=== PATIENT | male | born 1975 | race Caucasian/White ===

== ENCOUNTER 2021-07-29 06:10 | Inpatient (IN) | payer MEDICAID ==
[2021-07-29] VITALS (48 sets, daily range): BP systolic 84–177; BP diastolic 50–99
[~2021-07-29] VITALS: Ht 165.1 cm; Wt 92.5 kg
[2021-07-29] MEDS ORDERED: ONDANSETRON HCL 4MG/2ML INJ IV STA (06:29)
[2021-07-29] MEDS ORDERED: ROCURONIUM BROMIDE 10MG/ML VIAL 5ML IV ONE (06:45)
[2021-07-29] MEDS ORDERED: ETOMIDATE 2MG/ML 10ML VIAL IV ONE ×2 (06:45→08:41)
[2021-07-29] MEDS ORDERED: SUCCINYLCHOLINE CHLORIDE 200MG/10ML IV ONE (06:45)
[2021-07-29] MEDS ORDERED: PROPOFOL 10MG/ML 100ML 100 ML IV ONE (06:45)
[2021-07-29 06:56] LABS: CHLORIDE 97 mEq/L (98-107)
[2021-07-29 06:57] LABS: BASOPHILS % 0.9 % (0.0-2.0); EOSINOPHILS % 0.7 % (0.0-5.0); HEMATOCRIT. 32.3 % (42.0-52.0); HEMOGLOBIN. 10.9 g/dL (14.0-18.0); MEAN CORPUSCULAR HEMOGLOBIN 28.1 pg (28.0-32.0); MEAN CORPUSCULAR VOLUME 83.5 fL (80.0-94.0); MEAN PLATELET VOLUME 10.2 fl (7.4-10.4); MONOCYTES % 4.2 % (2.0-8.0); NEUTROPHILS % 80.2 % (40.0-76.0); PLATELET 165 x1000/uL (130-400); RED BLOOD CELL COUNT 3.87 mill/uL (4.7-6.1); RED CELL DISTRIBUTION WIDTH 17.5 % (11.6-14.6)
[2021-07-29] MEDS ORDERED: FENTANYL CITRATE/PF 1,000 MCG in SODIUM CHLORIDE 0.9% 80 ML IV PRN (07:00)
[2021-07-29] MEDS ORDERED: PIPERACILLIN/TAZOBACTAM 3.375GM/50ML PREMIX IV ONE (07:00)
[2021-07-29] MEDS ORDERED: VANCOMYCIN 1 G PREMIX 200 ML IV SCH (07:00)
[2021-07-29 07:05] LABS: PROTHROMBIN TIME 10.5 sec (9.6-11.0)
[2021-07-29] MEDS ORDERED: DIPHENHYDRAMINE 50MG/ML VIAL IV ONE (07:15)
[2021-07-29] MEDS ORDERED: METHYLPREDNISOLONE SOD SUCC 125 MG/2 ML VIAL IV ONE (07:15)
[2021-07-29] MEDS ORDERED: EPINEPHRINE 1:1000 1 MG/ML AMP IM ONE (07:15)
[2021-07-29] MEDS ORDERED: FAMOTIDINE 20MG/2ML VIAL IV ONE (07:15)
[2021-07-29] MEDS ORDERED: PIPERACILLIN/TAZ 3.375G PREMIX 50 ML IV NR (07:30)
[2021-07-29] MEDS ORDERED: SODIUM CHLORIDE 0.9% 1,000 ML IV ONE (07:30)
[2021-07-29] MEDS ORDERED: FENTANYL CITRATE 2,500 MCG in SODIUM CHLORIDE 0.9% 200 ML IV PRN (07:45)
[2021-07-29] MEDS ORDERED: METHYLPREDNISOLONE SOD SUCC 125 MG/2 ML VIAL IV SCH (07:50)
[2021-07-29] MEDS ORDERED: FENTANYL CITRATE/PF 50MCG/ML 2ML VIAL IV ONE (08:00)
[2021-07-29] MEDS ORDERED: LORAZEPAM 2MG/ML CPJ IV ONE ×2 (08:00)
[2021-07-29] MEDS ORDERED: MIDAZOLAM HCL 2 MG/2 ML VIAL IV ONE (08:00)
[2021-07-29 08:04] LABS: BG BASE EXCESS -5.8 mmol/L (-2.0-2.0); BG CARBOXYHEMOGLOBIN 0.3 % (0.5-1.5); BG DEOXYHEMOGLOBIN 2.7 % (0.0-5.0); BG FRACTION INSPIRED OXYGEN 60; BG HCO3 ACT 20.2 mmol/L (22.0-26.0); BG METHEMOGLOBIN 0.3 % (0.0-1.5); BG OXYGEN SATURATION 97.3 % (92.0-98.5); BG OXYHEMOGLOBIN 96.7 % (94.0-97.0); BG PCO2 41.9 mmHg (35.0-45.0); BG PH 7.302 (7.350-7.450); BG PO2 119.7 mmHg (75.0-100.0); BG SAMPLE SITE RIGHT RADIAL; BG TOTAL HEMOGLOBIN 11.2 g/dL (12.0-18.0); BG VENT MODE VENT - AC
[2021-07-29] MEDS ORDERED: SODIUM CHLORIDE 0.9% 10ML VIAL ONE (08:41)
[2021-07-29] MEDS ORDERED: VECURONIUM BROMIDE 10 MG/VIAL IV ONE (08:41)
[2021-07-29 09:27] LABS: CLARITY URINE CLEAR (CLEAR); COLOR URINE YELLOW (YELLOW); KETONES URINE NEGATIVE (NEGATIVE); LEUKOCYTE ESTERASE URINE NEGATIVE (NEGATIVE); NITRITE URINE NEGATIVE (NEGATIVE); OCCULT BLOOD URINE 2+ (NEGATIVE); PH URINE 5.5 (4.5-8.0); PROTEIN URINE 3+ (NEGATIVE); SPECIFIC GRAVITY URINE 1.015 (1.005-1.030); UROBILINOGEN URINE 0.2 E.U./dL (0.2-1.0)
[2021-07-29] MEDS ORDERED: ONDANSETRON HCL 4MG/2ML INJ IV PRN (09:30)
[2021-07-29] MEDS: DIPHENHYDRAMINE 50MG/ML VIAL IV SCH ×2 (09:59→16:42)
[2021-07-29] MEDS: SODIUM CHLORIDE 0.9% 1,000 ML IV SCH (10:02)
[2021-07-29] MEDS: PANTOPRAZOLE SODIUM 40 MG/VIAL IV SCH (10:13)
[2021-07-29] MEDS ORDERED: MIDAZOLAM 100MG/100ML PMX 100 ML IV PRN (11:30)
[2021-07-29] MEDS ORDERED: MIDAZOLAM HCL 100 MG in SODIUM CHLORIDE 0.9% 100 ML IV PRN (11:30)
[2021-07-29] MEDS: FENTANYL CITRATE/PF 2,500 MCG in SODIUM CHLORIDE 0.9% 200 ML IV PRN ×2 (11:46→20:12)
[2021-07-29] MEDS ORDERED: PROPOFOL 10MG/ML 100ML 100 ML IV PRN (12:00)
[2021-07-29] MEDS: PROPOFOL 10MG/ML 100ML 100 ML IV PRN ×2 (12:30→20:13)
[2021-07-29] MEDS: IPRATROPIUM/ALBUTEROL 0.5-3(2.5)MG/3ML NEB HHN SCH ×3 (12:55→21:04)
[2021-07-29] MEDS ORDERED: LIDOCAINE HCL 1% 20ML VIAL (Pyxis) INJ ONE (13:29)
[2021-07-29] MEDS: METHYLPREDNISOLONE SOD SUCC 40 MG/ML VIAL IV SCH ×2 (14:22→21:41)
[2021-07-29] MEDS: PIPERACILLIN/TAZOBACTAM 3.375 G in DEXTROSE 5% WATER 50 ML IV SCH ×2 (16:01→22:55)
[2021-07-29] MEDS ORDERED: BLOOD SUGAR DIAGNOSTIC STRIP TEST SCH (16:30)
[2021-07-29] MEDS ORDERED: INSULIN LISPRO 100 UNITS/ML SUBCUT SCH (17:00)
[2021-07-29] MEDS ORDERED: INSULIN GLARGINE UD 100 UNITS/ML SYR SUBCUT NR (18:30)
[2021-07-29] MEDS: ENOXAPARIN 30MG/0.3ML SYR SUBCUT SCH (19:01)
[2021-07-29] MEDS ORDERED: PIPERACILLIN/TAZOBACTAM 3.375 G in DEXTROSE 5% WATER 50 ML IV SCH (21:00)
[2021-07-29] MEDS: NOREPINEPHRINE 8 MG in DEXT 5% WATER 242 ML IV PRN (22:56)
[2021-07-30] VITALS (97 sets, daily range): BP systolic 79–175; BP diastolic 44–104
[2021-07-30] MEDS: PROPOFOL 10MG/ML 100ML 100 ML IV PRN ×6 (00:25→21:48)
[2021-07-30] MEDS: BLOOD SUGAR DIAGNOSTIC STRIP TEST SCH ×5 (00:30→23:25)
[2021-07-30] MEDS: SODIUM CHLORIDE 0.9% 1,000 ML IV SCH ×2 (00:32→12:12)
[2021-07-30] MEDS: INSULIN LISPRO 100 UNITS/ML SUBCUT SCH ×5 (00:33→23:25)
[2021-07-30] MEDS: IPRATROPIUM/ALBUTEROL 0.5-3(2.5)MG/3ML NEB HHN SCH ×6 (00:35→20:33)
[2021-07-30] MEDS: DIPHENHYDRAMINE 50MG/ML VIAL IV SCH ×3 (01:07→17:16)
[2021-07-30] MEDS: FENTANYL CITRATE/PF 2,500 MCG in SODIUM CHLORIDE 0.9% 200 ML IV PRN ×2 (04:17→20:52)
[2021-07-30] MEDS: ENOXAPARIN 30MG/0.3ML SYR SUBCUT SCH ×2 (05:29→17:17)
[2021-07-30] MEDS: METHYLPREDNISOLONE SOD SUCC 40 MG/ML VIAL IV SCH ×3 (05:29→21:00)
[2021-07-30] MEDS: PIPERACILLIN/TAZOBACTAM 3.375 G in DEXTROSE 5% WATER 50 ML IV SCH ×3 (05:29→21:02)
[2021-07-30 05:42] LABS: HEMATOCRIT. 32.9 % (42.0-52.0); HEMOGLOBIN. 10.9 g/dL (14.0-18.0); MEAN CORPUSCULAR HEMOGLOBIN 27.9 pg (28.0-32.0); MEAN CORPUSCULAR VOLUME 84.5 fL (80.0-94.0); MEAN PLATELET VOLUME 10.4 fl (7.4-10.4); PLATELET 156 x1000/uL (130-400); RED CELL DISTRIBUTION WIDTH 17.7 % (11.6-14.6)
[2021-07-30] MEDS ORDERED: FENTANYL CITRATE/PF 1,000 MCG in SODIUM CHLORIDE 0.9% 80 ML IV PRN (07:00)
[2021-07-30] MEDS ORDERED: SODIUM POLYSTYRENE SULFONATE 15 G/60 ML BOT PO NR (07:39)
[2021-07-30 08:05] LABS: PLATELET ESTIMATE NORMAL
[2021-07-30] MEDS: PANTOPRAZOLE SODIUM 40 MG/VIAL IV SCH (08:42)
[2021-07-30] MEDS: INSULIN GLARGINE UD 100 UNITS/ML SYR SUBCUT SCH ×2 (08:43→22:32)
[2021-07-30 09:32] LABS: BG BASE EXCESS -11.7 mmol/L (-2.0-2.0); BG CARBOXYHEMOGLOBIN 0.3 % (0.5-1.5); BG DEOXYHEMOGLOBIN 1.7 % (0.0-5.0); BG FRACTION INSPIRED OXYGEN 60; BG HCO3 ACT 14.6 mmol/L (22.0-26.0); BG METHEMOGLOBIN 0.3 % (0.0-1.5); BG OXYGEN SATURATION 98.3 % (92.0-98.5); BG OXYHEMOGLOBIN 97.7 % (94.0-97.0); BG PCO2 34.2 mmHg (35.0-45.0); BG PH 7.248 (7.350-7.450); BG PO2 155.5 mmHg (75.0-100.0); BG SAMPLE SITE RIGHT RADIAL; BG TOTAL HEMOGLOBIN 10.6 g/dL (12.0-18.0); BG VENT MODE VENT - AC
[2021-07-30] MEDS ORDERED: SODIUM BICARBONATE 8.4% 1 MEQ/ML 50ML SYR IV SCH (10:30)
[2021-07-30] MEDS: AMLODIPINE 10MG TABLET PO SCH (14:02)
[2021-07-30] MEDS: CLONIDINE 0.1MG TABLET PO PRN (14:58)
[2021-07-30] MEDS: HYDRALAZINE HCL 50MG TABLET PO SCH ×2 (17:17→20:51)
[2021-07-30] MEDS: HYDRALAZINE 20MG/ML VIAL IV PRN (18:42)
[2021-07-30] MEDS ORDERED: HYDRALAZINE HCL 50MG TABLET PO SCH ×2 (21:00)
[2021-07-31] VITALS (92 sets, daily range): BP systolic 71–206; BP diastolic 35–136
[2021-07-31] MEDS: IPRATROPIUM/ALBUTEROL 0.5-3(2.5)MG/3ML NEB HHN SCH ×6 (00:31→21:21)
[2021-07-31] MEDS: DIPHENHYDRAMINE 50MG/ML VIAL IV SCH ×3 (00:43→16:09)
[2021-07-31] MEDS: SODIUM CHLORIDE 0.9% 1,000 ML IV SCH ×2 (00:44→15:19)
[2021-07-31] MEDS: PROPOFOL 10MG/ML 100ML 100 ML IV PRN ×8 (00:54→23:44)
[2021-07-31] MEDS: NOREPINEPHRINE 8 MG in DEXT 5% WATER 242 ML IV PRN (04:27)
[2021-07-31 05:28] LABS: HEMATOCRIT. 28.1 % (42.0-52.0); HEMOGLOBIN. 9.5 g/dL (14.0-18.0); MEAN CORPUSCULAR VOLUME 85.6 fL (80.0-94.0); MEAN PLATELET VOLUME 11.3 fl (7.4-10.4); PLATELET 124 x1000/uL (130-400); RED BLOOD CELL COUNT 3.29 mill/uL (4.7-6.1); RED CELL DISTRIBUTION WIDTH 18.7 % (11.6-14.6)
[2021-07-31] MEDS: METHYLPREDNISOLONE SOD SUCC 40 MG/ML VIAL IV SCH ×3 (05:47→21:00)
[2021-07-31] MEDS: BLOOD SUGAR DIAGNOSTIC STRIP TEST SCH ×4 (05:47→23:30)
[2021-07-31] MEDS: ENOXAPARIN 30MG/0.3ML SYR SUBCUT SCH (05:47)
[2021-07-31] MEDS: PIPERACILLIN/TAZOBACTAM 3.375 G in DEXTROSE 5% WATER 50 ML IV SCH ×3 (05:48→21:00)
[2021-07-31] MEDS: INSULIN LISPRO 100 UNITS/ML SUBCUT SCH ×4 (06:00→23:43)
[2021-07-31 07:28] LABS: PLATELET ESTIMATE SLIGHTLY DECREASED
[2021-07-31] MEDS: AMLODIPINE 10MG TABLET PO SCH (09:00)
[2021-07-31] MEDS: HYDRALAZINE HCL 50MG TABLET PO SCH ×2 (09:00→20:53)
[2021-07-31 09:04] LABS: BG BASE EXCESS -10.8 mmol/L (-2.0-2.0); BG CARBOXYHEMOGLOBIN 0.4 % (0.5-1.5); BG DEOXYHEMOGLOBIN 2.6 % (0.0-5.0); BG FRACTION INSPIRED OXYGEN 40; BG METHEMOGLOBIN 0.3 % (0.0-1.5); BG OXYGEN SATURATION 97.4 % (92.0-98.5); BG OXYHEMOGLOBIN 96.7 % (94.0-97.0); BG PH 7.275 (7.350-7.450); BG PO2 110.7 mmHg (75.0-100.0); BG SAMPLE SITE LEFT RADIAL; BG TOTAL RESPIRATORY RATE 22 b/min; BG VENT MODE VENT - AC
[2021-07-31] MEDS: PANTOPRAZOLE SODIUM 40 MG/VIAL IV SCH (09:33)
[2021-07-31] MEDS: FENTANYL CITRATE/PF 2,500 MCG in SODIUM CHLORIDE 0.9% 200 ML IV PRN ×2 (10:23→20:53)
[2021-07-31] MEDS: INSULIN GLARGINE UD 100 UNITS/ML SYR SUBCUT SCH ×2 (10:35→21:14)
[2021-07-31] MEDS ORDERED: PHENYLEPHRINE 100 MG in DEXT 5% WATER 240 ML IV PRN (19:30)
[2021-07-31] MEDS: CHLORDIAZEPOXIDE 5 MG CAPSULE PO SCH (21:00)
[2021-07-31] MEDS: SODIUM BICARBONATE 150 MEQ in DEXTROSE 5% WATER 1,000 ML IV SCH (23:30)
[2021-08-01] VITALS (90 sets, daily range): BP systolic 118–190; BP diastolic 74–115
[2021-08-01] MEDS: DIPHENHYDRAMINE 50MG/ML VIAL IV SCH ×3 (00:43→18:12)
[2021-08-01] MEDS: IPRATROPIUM/ALBUTEROL 0.5-3(2.5)MG/3ML NEB HHN SCH ×6 (00:56→21:11)
[2021-08-01] MEDS: PROPOFOL 10MG/ML 100ML 100 ML IV PRN ×8 (02:33→22:39)
[2021-08-01] MEDS: FENTANYL CITRATE/PF 2,500 MCG in SODIUM CHLORIDE 0.9% 200 ML IV PRN ×3 (04:34→19:34)
[2021-08-01 04:42] LABS: HEMOGLOBIN. 9.9 g/dL (14.0-18.0); MEAN CORPUSCULAR HEMOGLOBIN 28.4 pg (28.0-32.0); MEAN CORPUSCULAR VOLUME 82.9 fL (80.0-94.0); PLATELET 147 x1000/uL (130-400); RED CELL DISTRIBUTION WIDTH 18.2 % (11.6-14.6)
[2021-08-01 04:43] LABS: CHLORIDE 109 mEq/L (98-107)
[2021-08-01 04:49] LABS: PHOSPHORUS 3.3 mg/dL (2.5-4.9)
[2021-08-01 04:51] LABS: CREATINE KINASE 98 IU/L (39-308)
[2021-08-01] MEDS: METHYLPREDNISOLONE SOD SUCC 40 MG/ML VIAL IV SCH ×3 (05:36→21:21)
[2021-08-01] MEDS: BLOOD SUGAR DIAGNOSTIC STRIP TEST SCH ×3 (05:36→18:11)
[2021-08-01] MEDS: CHLORDIAZEPOXIDE 5 MG CAPSULE PO SCH ×3 (05:36→21:21)
[2021-08-01] MEDS: PIPERACILLIN/TAZOBACTAM 3.375 G in DEXTROSE 5% WATER 50 ML IV SCH ×3 (05:36→21:21)
[2021-08-01] MEDS: INSULIN LISPRO 100 UNITS/ML SUBCUT SCH ×3 (05:42→18:24)
[2021-08-01] MEDS: CLONIDINE 0.1MG TABLET PO PRN (06:51)
[2021-08-01 07:55] LABS: NUCLEATED RED BLOOD CELLS 1 /100 WBC
[2021-08-01 07:56] LABS: PLATELET ESTIMATE NORMAL
[2021-08-01 08:18] LABS: BG BASE EXCESS -0.7 mmol/L (-2.0-2.0); BG CARBOXYHEMOGLOBIN 0.3 % (0.5-1.5); BG HCO3 ACT 23.2 mmol/L (22.0-26.0); BG METHEMOGLOBIN 0.3 % (0.0-1.5); BG OXYHEMOGLOBIN 96.4 % (94.0-97.0); BG PCO2 35.4 mmHg (35.0-45.0); BG PH 7.435 (7.350-7.450); BG PO2 103.6 mmHg (75.0-100.0); BG SAMPLE SITE RIGHT RADIAL; BG TOTAL HEMOGLOBIN 10.3 g/dL (12.0-18.0); BG VENT MODE VENT - AC
[2021-08-01] MEDS: AMLODIPINE 10MG TABLET PO SCH (08:52)
[2021-08-01] MEDS: HYDRALAZINE HCL 50MG TABLET PO SCH (08:52)
[2021-08-01] MEDS: PANTOPRAZOLE SODIUM 40 MG/VIAL IV SCH (08:52)
[2021-08-01] MEDS: ENOXAPARIN 40MG/0.4ML SYR SUBCUT SCH (08:53)
[2021-08-01] MEDS: HYDRALAZINE 20MG/ML VIAL IV PRN (10:47)
[2021-08-01] MEDS: INSULIN GLARGINE UD 100 UNITS/ML SYR SUBCUT SCH (10:49)
[2021-08-01] MEDS ORDERED: BISACODYL 10MG SUPP PR SCH (11:45)
[2021-08-01] MEDS: METOCLOPRAMIDE HCL 10MG/2ML VIAL IV SCH ×2 (12:49→18:12)
[2021-08-01] MEDS: DOCUSATE SODIUM SUGAR FREE 100MG/10ML UDC NG SCH (12:49)
[2021-08-01] MEDS: SODIUM BICARBONATE 150 MEQ in DEXTROSE 5% WATER 1,000 ML IV SCH ×2 (14:26→22:18)
[2021-08-01] MEDS: HYDRALAZINE HCL 25MG TABLET PO SCH (21:21)
[2021-08-01] MEDS ORDERED: INSULIN GLARGINE UD 100 UNITS/ML SYR SUBCUT SCH (22:00)
[2021-08-02] VITALS (96 sets, daily range): BP systolic 116–163; BP diastolic 63–103
[2021-08-02] MEDS: HYDRALAZINE 20MG/ML VIAL IV PRN (00:37)
[2021-08-02] MEDS: DIPHENHYDRAMINE 50MG/ML VIAL IV SCH ×3 (00:37→17:45)
[2021-08-02] MEDS: METOCLOPRAMIDE HCL 10MG/2ML VIAL IV SCH ×5 (00:37→23:50)
[2021-08-02] MEDS: BLOOD SUGAR DIAGNOSTIC STRIP TEST SCH ×5 (00:37→23:50)
[2021-08-02] MEDS: INSULIN LISPRO 100 UNITS/ML SUBCUT SCH ×5 (00:45→23:51)
[2021-08-02] MEDS: IPRATROPIUM/ALBUTEROL 0.5-3(2.5)MG/3ML NEB HHN SCH ×6 (00:51→21:09)
[2021-08-02] MEDS: PROPOFOL 10MG/ML 100ML 100 ML IV PRN ×8 (01:42→21:40)
[2021-08-02] MEDS: FENTANYL CITRATE/PF 2,500 MCG in SODIUM CHLORIDE 0.9% 200 ML IV PRN ×3 (03:14→19:18)
[2021-08-02] MEDS: METHYLPREDNISOLONE SOD SUCC 40 MG/ML VIAL IV SCH ×3 (05:17→21:00)
[2021-08-02] MEDS: CHLORDIAZEPOXIDE 5 MG CAPSULE PO SCH ×3 (05:17→21:00)
[2021-08-02] MEDS: PIPERACILLIN/TAZOBACTAM 3.375 G in DEXTROSE 5% WATER 50 ML IV SCH ×3 (05:18→21:00)
[2021-08-02 06:03] LABS: HEMATOCRIT. 29.8 % (42.0-52.0); HEMOGLOBIN. 10.3 g/dL (14.0-18.0); MEAN CORPUSCULAR HEMOGLOBIN 28.8 pg (28.0-32.0); MEAN CORPUSCULAR VOLUME 83.2 fL (80.0-94.0); MEAN PLATELET VOLUME 10.7 fl (7.4-10.4); PLATELET 142 x1000/uL (130-400); RED BLOOD CELL COUNT 3.58 mill/uL (4.7-6.1); RED CELL DISTRIBUTION WIDTH 18.4 % (11.6-14.6)
[2021-08-02 06:20] LABS: PHOSPHORUS 3.7 mg/dL (2.5-4.9)
[2021-08-02] MEDS: ENOXAPARIN 40MG/0.4ML SYR SUBCUT SCH (08:27)
[2021-08-02] MEDS: HYDRALAZINE HCL 25MG TABLET PO SCH ×2 (08:27→20:27)
[2021-08-02] MEDS: PANTOPRAZOLE SODIUM 40 MG/VIAL IV SCH (08:27)
[2021-08-02] MEDS: AMLODIPINE 10MG TABLET PO SCH (08:27)
[2021-08-02] MEDS: DOCUSATE SODIUM SUGAR FREE 100MG/10ML UDC NG SCH (08:27)
[2021-08-02 09:28] LABS: BG BASE EXCESS 1.9 mmol/L (-2.0-2.0); BG CARBOXYHEMOGLOBIN 0.5 % (0.5-1.5); BG DEOXYHEMOGLOBIN 4.4 % (0.0-5.0); BG FRACTION INSPIRED OXYGEN 40; BG HCO3 ACT 26.8 mmol/L (22.0-26.0); BG OXYGEN SATURATION 95.6 % (92.0-98.5); BG OXYHEMOGLOBIN 95.1 % (94.0-97.0); BG PCO2 43.4 mmHg (35.0-45.0); BG PH 7.409 (7.350-7.450); BG PO2 86.4 mmHg (75.0-100.0); BG SAMPLE SITE RIGHT RADIAL; BG TOTAL HEMOGLOBIN 12.5 g/dL (12.0-18.0); BG VENT MODE VENT - AC
[2021-08-02] MEDS ORDERED: LACTULOSE 20G/30ML UDC PO NR (10:00)
[2021-08-02 10:21] LABS: PLATELET ESTIMATE NORMAL
[2021-08-02] MEDS: SODIUM CHLORIDE 0.9% 1,000 ML IV SCH ×2 (10:22→20:19)
[2021-08-02] MEDS: INSULIN GLARGINE UD 100 UNITS/ML SYR SUBCUT SCH ×2 (10:32→21:27)
[2021-08-02] MEDS: FOLIC ACID 1MG TABLET PO SCH (13:20)
[2021-08-02] MEDS: THIAMINE HCL 100MG TABLET PO SCH (13:20)
[2021-08-02] MEDS: ENOXAPARIN 30MG/0.3ML SYR SUBCUT SCH (20:27)
[2021-08-02] MEDS: LORAZEPAM 2MG/ML CPJ IV PRN (23:06)
[2021-08-03] VITALS (101 sets, daily range): BP systolic 76–160; BP diastolic 41–96
[2021-08-03] MEDS: HYDRALAZINE 20MG/ML VIAL IV PRN (00:22)
[2021-08-03] MEDS: DIPHENHYDRAMINE 50MG/ML VIAL IV SCH ×2 (00:23→09:03)
[2021-08-03] MEDS: PROPOFOL 10MG/ML 100ML 100 ML IV PRN ×3 (00:27→06:07)
[2021-08-03] MEDS: IPRATROPIUM/ALBUTEROL 0.5-3(2.5)MG/3ML NEB HHN SCH ×7 (01:22→23:39)
[2021-08-03] MEDS: FENTANYL CITRATE/PF 2,500 MCG in SODIUM CHLORIDE 0.9% 200 ML IV PRN (02:57)
[2021-08-03 06:02] LABS: HEMATOCRIT. 28.4 % (42.0-52.0); HEMOGLOBIN. 9.7 g/dL (14.0-18.0); MEAN CORPUSCULAR HEMOGLOBIN 28.6 pg (28.0-32.0); MEAN CORPUSCULAR VOLUME 83.4 fL (80.0-94.0); MEAN PLATELET VOLUME 9.6 fl (7.4-10.4); PLATELET 136 x1000/uL (130-400); RED BLOOD CELL COUNT 3.41 mill/uL (4.7-6.1); RED CELL DISTRIBUTION WIDTH 18.7 % (11.6-14.6)
[2021-08-03] MEDS: METHYLPREDNISOLONE SOD SUCC 40 MG/ML VIAL IV SCH (06:05)
[2021-08-03] MEDS: PIPERACILLIN/TAZOBACTAM 3.375 G in DEXTROSE 5% WATER 50 ML IV SCH ×3 (06:05→22:47)
[2021-08-03] MEDS: METOCLOPRAMIDE HCL 10MG/2ML VIAL IV SCH ×4 (06:05→23:54)
[2021-08-03] MEDS: CHLORDIAZEPOXIDE 5 MG CAPSULE PO SCH ×2 (06:06→13:24)
[2021-08-03] MEDS: INSULIN LISPRO 100 UNITS/ML SUBCUT SCH ×3 (06:06→17:51)
[2021-08-03] MEDS: BLOOD SUGAR DIAGNOSTIC STRIP TEST SCH ×3 (06:06→17:51)
[2021-08-03] MEDS: SODIUM CHLORIDE 0.9% 1,000 ML IV SCH ×2 (06:08→18:43)
[2021-08-03 06:29] LABS: PHOSPHORUS 3.8 mg/dL (2.5-4.9)
[2021-08-03 08:45] LABS: BG BASE EXCESS 2.9 mmol/L (-2.0-2.0); BG CARBOXYHEMOGLOBIN 0.3 % (0.5-1.5); BG DEOXYHEMOGLOBIN 2.6 % (0.0-5.0); BG HCO3 ACT 27.3 mmol/L (22.0-26.0); BG METHEMOGLOBIN 0.3 % (0.0-1.5); BG OXYGEN SATURATION 97.4 % (92.0-98.5); BG OXYHEMOGLOBIN 96.8 % (94.0-97.0); BG PH 7.441 (7.350-7.450); BG PO2 110.3 mmHg (75.0-100.0); BG SAMPLE SITE RIGHT RADIAL; BG TOTAL HEMOGLOBIN 10.3 g/dL (12.0-18.0); BG VENT MODE VENT - AC
[2021-08-03] MEDS: LORAZEPAM 2MG/ML CPJ IV PRN ×2 (09:00→14:37)
[2021-08-03] MEDS: FOLIC ACID 1MG TABLET PO SCH (09:04)
[2021-08-03] MEDS: DOCUSATE SODIUM SUGAR FREE 100MG/10ML UDC NG SCH (09:04)
[2021-08-03] MEDS: PANTOPRAZOLE SODIUM 40 MG/VIAL IV SCH (09:04)
[2021-08-03] MEDS: AMLODIPINE 10MG TABLET PO SCH (09:04)
[2021-08-03] MEDS: HYDRALAZINE HCL 25MG TABLET PO SCH ×2 (09:04→21:26)
[2021-08-03] MEDS: ENOXAPARIN 30MG/0.3ML SYR SUBCUT SCH ×2 (09:05→21:27)
[2021-08-03] MEDS: INSULIN GLARGINE UD 100 UNITS/ML SYR SUBCUT SCH ×2 (09:07→22:00)
[2021-08-03] MEDS: THIAMINE HCL 100MG TABLET PO SCH (09:09)
[2021-08-03] MEDS ORDERED: DIPHENHYDRAMINE 50MG/ML VIAL IV PRN (09:15)
[2021-08-03 12:12] LABS: BG BASE EXCESS 1.2 mmol/L (-2.0-2.0); BG CARBOXYHEMOGLOBIN 0.1 % (0.5-1.5); BG DEOXYHEMOGLOBIN 9.6 % (0.0-5.0); BG FRACTION INSPIRED OXYGEN 50; BG HCO3 ACT 27.6 mmol/L (22.0-26.0); BG METHEMOGLOBIN 0.2 % (0.0-1.5); BG OXYGEN SATURATION 90.4 % (92.0-98.5); BG OXYHEMOGLOBIN 90.1 % (94.0-97.0); BG PCO2 51.9 mmHg (35.0-45.0); BG PH 7.343 (7.350-7.450); BG SAMPLE SITE RIGHT RADIAL; BG TOTAL HEMOGLOBIN 11.2 g/dL (12.0-18.0); BG VENT MODE VENT - CPAP
[2021-08-03] MEDS ORDERED: HALOPERIDOL LACTATE 5MG/ML VIAL IM NR (15:45)
[2021-08-03] MEDS: DEXTROSE 50% WATER 50ML SYRINGE IV PRN ×2 (17:06→21:38)
[2021-08-03] MEDS ORDERED: PHENYLEPHRINE 100 MG in DEXT 5% WATER 240 ML IV PRN (17:30)
[2021-08-03] MEDS ORDERED: FLUMAZENIL 0.1 MG/ML 5ML VIAL IV ONE (17:30)
[2021-08-03] MEDS ORDERED: FLUMAZENIL 0.1 MG/ML 5ML VIAL IV NR ×3 (17:30→22:00)
[2021-08-03 18:04] LABS: BG CARBOXYHEMOGLOBIN 0.2 % (0.5-1.5); BG DEOXYHEMOGLOBIN 8.5 % (0.0-5.0); BG FRACTION INSPIRED OXYGEN 80; BG METHEMOGLOBIN 0.2 % (0.0-1.5); BG OXYGEN SATURATION 91.5 % (92.0-98.5); BG OXYHEMOGLOBIN 91.1 % (94.0-97.0); BG PCO2 55.2 mmHg (35.0-45.0); BG PH 7.308 (7.350-7.450); BG PO2 69.8 mmHg (75.0-100.0); BG SAMPLE SITE RIGHT RADIAL; BG TOTAL HEMOGLOBIN 11.3 g/dL (12.0-18.0); BG VENT MODE COOL AEROSOL
[2021-08-03 20:41] LABS: PLATELET ESTIMATE NORMAL
[2021-08-03 21:37] LABS: BG BASE EXCESS -1.4 mmol/L (-2.0-2.0); BG CARBOXYHEMOGLOBIN 0.7 % (0.5-1.5); BG DEOXYHEMOGLOBIN 21.4 % (0.0-5.0); BG FRACTION INSPIRED OXYGEN 80; BG HCO3 ACT 27.4 mmol/L (22.0-26.0); BG METHEMOGLOBIN 0.2 % (0.0-1.5); BG OXYGEN SATURATION 78.4 % (92.0-98.5); BG OXYHEMOGLOBIN 77.7 % (94.0-97.0); BG PCO2 65.8 mmHg (35.0-45.0); BG PH 7.237 (7.350-7.450); BG PO2 48.2 mmHg (75.0-100.0); BG SAMPLE SITE RIGHT RADIAL; BG VENT MODE COOL AEROSOL
[2021-08-03] MEDS ORDERED: DEXTROSE 10% WATER 500 ML IV ONE (22:00)
[2021-08-03 23:32] LABS: BG BASE EXCESS -0.6 mmol/L (-2.0-2.0); BG CARBOXYHEMOGLOBIN 0.2 % (0.5-1.5); BG DEOXYHEMOGLOBIN 3.9 % (0.0-5.0); BG FRACTION INSPIRED OXYGEN 100; BG HCO3 ACT 24.9 mmol/L (22.0-26.0); BG OXYGEN SATURATION 96.1 % (92.0-98.5); BG OXYHEMOGLOBIN 95.9 % (94.0-97.0); BG PCO2 44.5 mmHg (35.0-45.0); BG PH 7.366 (7.350-7.450); BG PO2 90.2 mmHg (75.0-100.0); BG SAMPLE SITE RIGHT RADIAL; BG TOTAL HEMOGLOBIN 10.4 g/dL (12.0-18.0); BG VENT MODE MASK - BIPAP
[2021-08-03] MEDS: ACETYLCYSTEINE 100MG/ML 10% VIAL 4ML INH SCH (23:39)
[2021-08-04] VITALS (62 sets, daily range): BP systolic 90–157; BP diastolic 51–98
[2021-08-04] MEDS: DEXTROSE 50% WATER 50ML SYRINGE IV PRN (04:35)
[2021-08-04] MEDS: IPRATROPIUM/ALBUTEROL 0.5-3(2.5)MG/3ML NEB HHN SCH ×5 (04:45→20:55)
[2021-08-04] MEDS: BLOOD SUGAR DIAGNOSTIC STRIP TEST SCH ×5 (05:32→23:38)
[2021-08-04] MEDS: METOCLOPRAMIDE HCL 10MG/2ML VIAL IV SCH ×4 (05:33→23:20)
[2021-08-04] MEDS: INSULIN LISPRO 100 UNITS/ML SUBCUT SCH ×5 (05:33→23:39)
[2021-08-04 05:36] LABS: HEMATOCRIT. 30.5 % (42.0-52.0); MEAN CORPUSCULAR HEMOGLOBIN 28.1 pg (28.0-32.0); MEAN CORPUSCULAR VOLUME 85.5 fL (80.0-94.0); MEAN PLATELET VOLUME 9.9 fl (7.4-10.4); PLATELET 142 x1000/uL (130-400); RED BLOOD CELL COUNT 3.56 mill/uL (4.7-6.1); RED CELL DISTRIBUTION WIDTH 18.2 % (11.6-14.6)
[2021-08-04 05:57] LABS: PHOSPHORUS 4.6 mg/dL (2.5-4.9)
[2021-08-04] MEDS: PANTOPRAZOLE SODIUM 40 MG/VIAL IV SCH (08:23)
[2021-08-04] MEDS: DOCUSATE SODIUM SUGAR FREE 100MG/10ML UDC NG SCH (08:24)
[2021-08-04] MEDS: HYDRALAZINE HCL 25MG TABLET PO SCH ×2 (08:24→20:51)
[2021-08-04] MEDS: FOLIC ACID 1MG TABLET PO SCH (08:24)
[2021-08-04] MEDS: THIAMINE HCL 100MG TABLET PO SCH (08:24)
[2021-08-04] MEDS: AMLODIPINE 10MG TABLET PO SCH (08:24)
[2021-08-04] MEDS: ENOXAPARIN 30MG/0.3ML SYR SUBCUT SCH ×2 (08:32→20:42)
[2021-08-04] MEDS: ACETYLCYSTEINE 100MG/ML 10% VIAL 4ML INH SCH ×2 (08:41→16:38)
[2021-08-04] MEDS ORDERED: METHYLPREDNISOLONE SOD SUCC 40 MG/ML VIAL IV SCH (09:00)
[2021-08-04 10:35] LABS: PLATELET ESTIMATE NORMAL
[2021-08-04] MEDS: ACETAMINOPHEN 325MG TABLET PO PRN (10:56)
[2021-08-04] MEDS: INSULIN GLARGINE UD 100 UNITS/ML SYR SUBCUT SCH (10:57)
[2021-08-04] MEDS ORDERED: TRAMADOL 50MG TABLET PO PRN (13:15)
[2021-08-05] VITALS (22 sets, daily range): BP systolic 111–150; BP diastolic 62–92
[2021-08-05] MEDS: IPRATROPIUM/ALBUTEROL 0.5-3(2.5)MG/3ML NEB HHN SCH ×6 (00:38→21:34)
[2021-08-05] MEDS: ACETYLCYSTEINE 100MG/ML 10% VIAL 4ML INH SCH ×4 (00:38→16:50)
[2021-08-05] MEDS: INSULIN LISPRO 100 UNITS/ML SUBCUT SCH ×4 (06:00→23:53)
[2021-08-05] MEDS: BLOOD SUGAR DIAGNOSTIC STRIP TEST SCH ×3 (06:27→18:08)
[2021-08-05] MEDS: METOCLOPRAMIDE HCL 10MG/2ML VIAL IV SCH ×4 (06:46→23:51)
[2021-08-05] MEDS ORDERED: PREDNISONE 20MG TABLET PO SCH (09:00)
[2021-08-05] MEDS: FOLIC ACID 1MG TABLET PO SCH (09:09)
[2021-08-05] MEDS: PANTOPRAZOLE SODIUM 40 MG/VIAL IV SCH (09:09)
[2021-08-05] MEDS: HYDRALAZINE HCL 25MG TABLET PO SCH ×2 (09:10→20:45)
[2021-08-05] MEDS: THIAMINE HCL 100MG TABLET PO SCH (09:10)
[2021-08-05] MEDS: AMLODIPINE 10MG TABLET PO SCH (09:10)
[2021-08-05] MEDS: ENOXAPARIN 30MG/0.3ML SYR SUBCUT SCH ×2 (09:11→20:46)
[2021-08-05] MEDS: DOCUSATE SODIUM SUGAR FREE 100MG/10ML UDC NG SCH (09:11)
[2021-08-05] MEDS ORDERED: NALOXONE HCL 0.4MG/ML VIAL IV PRN (13:15)
[2021-08-05 15:22] LABS: HEMATOCRIT. 27.2 % (42.0-52.0); HEMOGLOBIN. 9.1 g/dL (14.0-18.0); MEAN CORPUSCULAR HEMOGLOBIN 28.6 pg (28.0-32.0); MEAN CORPUSCULAR VOLUME 85.3 fL (80.0-94.0); MEAN PLATELET VOLUME 9.7 fl (7.4-10.4); PLATELET 135 x1000/uL (130-400); RED BLOOD CELL COUNT 3.19 mill/uL (4.7-6.1); RED CELL DISTRIBUTION WIDTH 18.4 % (11.6-14.6)
[2021-08-05 15:35] LABS: PHOSPHORUS 2.9 mg/dL (2.5-4.9)
[2021-08-05 16:34] LABS: PLATELET ESTIMATE NORMAL
[2021-08-05 17:39] LABS: BG BASE EXCESS -0.1 mmol/L (-2.0-2.0); BG CARBOXYHEMOGLOBIN 0.6 % (0.5-1.5); BG DEOXYHEMOGLOBIN 4.7 % (0.0-5.0); BG FRACTION INSPIRED OXYGEN 40; BG METHEMOGLOBIN 0.1 % (0.0-1.5); BG OXYGEN SATURATION 95.3 % (92.0-98.5); BG OXYHEMOGLOBIN 94.6 % (94.0-97.0); BG PCO2 42.3 mmHg (35.0-45.0); BG PH 7.389 (7.350-7.450); BG PO2 81.2 mmHg (75.0-100.0); BG SAMPLE SITE RIGHT RADIAL; BG TOTAL HEMOGLOBIN 11.6 g/dL (12.0-18.0); BG VENT MODE NASAL CANNULA
[2021-08-06] VITALS (12 sets, daily range): BP systolic 121–159; BP diastolic 76–96
[2021-08-06] MEDS: ACETYLCYSTEINE 100MG/ML 10% VIAL 4ML INH SCH ×3 (00:30→16:06)
[2021-08-06] MEDS: IPRATROPIUM/ALBUTEROL 0.5-3(2.5)MG/3ML NEB HHN SCH ×6 (00:30→20:53)
[2021-08-06] MEDS: METOCLOPRAMIDE HCL 10MG/2ML VIAL IV SCH ×3 (05:30→17:57)
[2021-08-06] MEDS: INSULIN LISPRO 100 UNITS/ML SUBCUT SCH ×3 (05:31→18:01)
[2021-08-06] MEDS: BLOOD SUGAR DIAGNOSTIC STRIP TEST SCH ×4 (05:37→17:46)
[2021-08-06 06:01] LABS: PHOSPHORUS 2.7 mg/dL (2.5-4.9)
[2021-08-06 06:13] LABS: BASOPHILS % 0.3 % (0.0-2.0); EOSINOPHILS % 1.3 % (0.0-5.0); HEMATOCRIT. 28.1 % (42.0-52.0); HEMOGLOBIN. 9.2 g/dL (14.0-18.0); LYMPHOCYTES % 12.8 % (20.0-50.0); MEAN CORPUSCULAR HEMOGLOBIN 28.2 pg (28.0-32.0); MEAN CORPUSCULAR VOLUME 86.3 fL (80.0-94.0); MEAN PLATELET VOLUME 10.3 fl (7.4-10.4); MONOCYTES % 4.8 % (2.0-8.0); NEUTROPHILS % 80.8 % (40.0-76.0); PLATELET 153 x1000/uL (130-400); RED BLOOD CELL COUNT 3.25 mill/uL (4.7-6.1); RED CELL DISTRIBUTION WIDTH 18.5 % (11.6-14.6)
[2021-08-06] MEDS: DOCUSATE SODIUM SUGAR FREE 100MG/10ML UDC NG SCH (08:46)
[2021-08-06] MEDS: PANTOPRAZOLE SODIUM 40 MG/VIAL IV SCH (08:46)
[2021-08-06] MEDS: THIAMINE HCL 100MG TABLET PO SCH (08:46)
[2021-08-06] MEDS: ENOXAPARIN 30MG/0.3ML SYR SUBCUT SCH ×2 (08:46→21:06)
[2021-08-06] MEDS: PREDNISONE 10MG TABLET PO SCH (08:47)
[2021-08-06] MEDS: FOLIC ACID 1MG TABLET PO SCH (08:47)
[2021-08-06] MEDS: AMLODIPINE 10MG TABLET PO SCH (08:47)
[2021-08-06] MEDS: HYDRALAZINE HCL 25MG TABLET PO SCH ×2 (08:48→21:07)
[2021-08-06] MEDS ORDERED: BENZONATATE 100MG CAPSULE PO NR (14:00)
[2021-08-06] MEDS: ACETAMINOPHEN 325MG TABLET PO PRN (15:23)
[2021-08-06] MEDS: BENZONATATE 100MG CAPSULE PO PRN (21:07)
[2021-08-07] VITALS (12 sets, daily range): BP systolic 106–155; BP diastolic 54–99
[2021-08-07] MEDS: INSULIN LISPRO 100 UNITS/ML SUBCUT SCH ×5 (00:03→23:26)
[2021-08-07] MEDS: BLOOD SUGAR DIAGNOSTIC STRIP TEST SCH ×5 (00:03→23:26)
[2021-08-07] MEDS: METOCLOPRAMIDE HCL 10MG/2ML VIAL IV SCH ×5 (00:03→23:25)
[2021-08-07] MEDS: IPRATROPIUM/ALBUTEROL 0.5-3(2.5)MG/3ML NEB HHN SCH ×6 (00:36→21:03)
[2021-08-07] MEDS: ACETYLCYSTEINE 100MG/ML 10% VIAL 4ML INH SCH ×3 (00:36→16:28)
[2021-08-07] MEDS: BENZONATATE 100MG CAPSULE PO PRN (06:42)
[2021-08-07 08:30] LABS: BASOPHILS % 0.4 % (0.0-2.0); EOSINOPHILS % 1.4 % (0.0-5.0); HEMATOCRIT. 26.3 % (42.0-52.0); HEMOGLOBIN. 8.7 g/dL (14.0-18.0); LYMPHOCYTES % 9.9 % (20.0-50.0); MEAN CORPUSCULAR HEMOGLOBIN 28.5 pg (28.0-32.0); MEAN CORPUSCULAR VOLUME 86.2 fL (80.0-94.0); MEAN PLATELET VOLUME 9.6 fl (7.4-10.4); MONOCYTES % 5.8 % (2.0-8.0); NEUTROPHILS % 82.5 % (40.0-76.0); PLATELET 167 x1000/uL (130-400); RED BLOOD CELL COUNT 3.05 mill/uL (4.7-6.1)
[2021-08-07] MEDS: AMLODIPINE 10MG TABLET PO SCH (08:37)
[2021-08-07] MEDS: HYDRALAZINE HCL 25MG TABLET PO SCH ×2 (08:37→21:28)
[2021-08-07] MEDS: ENOXAPARIN 30MG/0.3ML SYR SUBCUT SCH ×2 (08:37→21:28)
[2021-08-07] MEDS: PANTOPRAZOLE SODIUM 40 MG/VIAL IV SCH (08:37)
[2021-08-07] MEDS: FOLIC ACID 1MG TABLET PO SCH (08:37)
[2021-08-07] MEDS: DOCUSATE SODIUM SUGAR FREE 100MG/10ML UDC NG SCH (08:37)
[2021-08-07] MEDS: THIAMINE HCL 100MG TABLET PO SCH (08:38)
[2021-08-07] MEDS: PREDNISONE 10MG TABLET PO SCH (08:38)
[2021-08-07 09:04] LABS: PHOSPHORUS 2.4 mg/dL (2.5-4.9)
[2021-08-07] MEDS ORDERED: POTASSIUM-SODIUM PHOSPHATE POWDER PACKET PO NR (10:15)
[2021-08-07] MEDS: MAGNESIUM OXIDE 400MG TABLET PO SCH (10:44)
[2021-08-07] MEDS ORDERED: BISACODYL 10MG SUPP PR NR (15:00)
[2021-08-07] MEDS: SODIUM CHLORIDE 0.45% 1,000 ML IV SCH (15:34)
[2021-08-07] MEDS ORDERED: PREDNISONE 10MG TABLET PO NR (17:15)
[2021-08-07] MEDS: GUAIFENESIN 600MG ER TABLET PO SCH (21:28)
[2021-08-07] MEDS: INSULIN GLARGINE UD 100 UNITS/ML SYR SUBCUT SCH (23:26)
[2021-08-08] VITALS (15 sets, daily range): BP systolic 129–164; BP diastolic 78–103
[2021-08-08] MEDS: IPRATROPIUM/ALBUTEROL 0.5-3(2.5)MG/3ML NEB HHN SCH ×6 (00:26→20:55)
[2021-08-08] MEDS: ACETYLCYSTEINE 100MG/ML 10% VIAL 4ML INH SCH ×3 (00:26→16:28)
[2021-08-08] MEDS: SODIUM CHLORIDE 0.45% 1,000 ML IV SCH (03:41)
[2021-08-08] MEDS: INSULIN LISPRO 100 UNITS/ML SUBCUT SCH ×4 (05:34→23:25)
[2021-08-08] MEDS: METOCLOPRAMIDE HCL 10MG/2ML VIAL IV SCH ×4 (05:34→23:23)
[2021-08-08] MEDS: BLOOD SUGAR DIAGNOSTIC STRIP TEST SCH ×4 (05:34→23:23)
[2021-08-08] MEDS: FOLIC ACID 1MG TABLET PO SCH (08:33)
[2021-08-08] MEDS: THIAMINE HCL 100MG TABLET PO SCH (08:33)
[2021-08-08] MEDS: DOCUSATE SODIUM SUGAR FREE 100MG/10ML UDC NG SCH (08:33)
[2021-08-08] MEDS: ENOXAPARIN 30MG/0.3ML SYR SUBCUT SCH ×2 (08:33→21:21)
[2021-08-08] MEDS: PANTOPRAZOLE SODIUM 40 MG/VIAL IV SCH (08:33)
[2021-08-08] MEDS: GUAIFENESIN 600MG ER TABLET PO SCH ×2 (08:34→21:20)
[2021-08-08] MEDS: MAGNESIUM OXIDE 400MG TABLET PO SCH (08:34)
[2021-08-08] MEDS: PREDNISONE 20MG TABLET PO SCH (08:34)
[2021-08-08] MEDS: ACETAMINOPHEN 325MG TABLET PO PRN ×2 (08:35→18:33)
[2021-08-08] MEDS: AMLODIPINE 10MG TABLET PO SCH (08:35)
[2021-08-08] MEDS ORDERED: HYDRALAZINE HCL 50MG TABLET PO SCH (09:30)
[2021-08-08] MEDS: INSULIN GLARGINE UD 100 UNITS/ML SYR SUBCUT SCH ×2 (10:09→23:26)
[2021-08-08] MEDS: CEFEPIME 1,000 MG in DEXTROSE 5% WATER 50 ML IV SCH (17:28)
[2021-08-08] MEDS: BENZONATATE 100MG CAPSULE PO PRN (17:28)
[2021-08-08] MEDS ORDERED: METOPROLOL TARTRATE 50MG TABLET PO SCH (21:00)
[2021-08-08] MEDS: FUROSEMIDE 40MG TABLET PO SCH (21:20)
[2021-08-08] MEDS: HYDRALAZINE HCL 100MG TABLET PO SCH (21:21)
[2021-08-08] MEDS: METOPROLOL TARTRATE 50MG TABLET PO SCH (21:21)
[2021-08-09] VITALS (11 sets, daily range): BP systolic 112–144; BP diastolic 60–94
[2021-08-09] MEDS: IPRATROPIUM/ALBUTEROL 0.5-3(2.5)MG/3ML NEB HHN SCH ×6 (00:42→20:48)
[2021-08-09] MEDS: CEFEPIME 1,000 MG in DEXTROSE 5% WATER 50 ML IV SCH ×3 (01:49→18:18)
[2021-08-09] MEDS: INSULIN LISPRO 100 UNITS/ML SUBCUT SCH ×3 (05:14→18:28)
[2021-08-09] MEDS: BLOOD SUGAR DIAGNOSTIC STRIP TEST SCH ×3 (05:14→18:25)
[2021-08-09] MEDS: METOCLOPRAMIDE HCL 10MG/2ML VIAL IV SCH ×3 (05:34→18:18)
[2021-08-09 05:55] LABS: HEMATOCRIT. 27.6 % (42.0-52.0); MEAN CORPUSCULAR HEMOGLOBIN 27.8 pg (28.0-32.0); MEAN CORPUSCULAR VOLUME 84.8 fL (80.0-94.0); MEAN PLATELET VOLUME 9.9 fl (7.4-10.4); PLATELET 179 x1000/uL (130-400); RED BLOOD CELL COUNT 3.25 mill/uL (4.7-6.1)
[2021-08-09 06:06] LABS: CHLORIDE 104 mEq/L (98-107)
[2021-08-09 06:23] LABS: PHOSPHORUS 3.4 mg/dL (2.5-4.9)
[2021-08-09] MEDS: ENOXAPARIN 30MG/0.3ML SYR SUBCUT SCH ×2 (08:43→21:49)
[2021-08-09] MEDS: DOCUSATE SODIUM SUGAR FREE 100MG/10ML UDC NG SCH (08:44)
[2021-08-09] MEDS: MAGNESIUM OXIDE 400MG TABLET PO SCH (08:46)
[2021-08-09] MEDS: FOLIC ACID 1MG TABLET PO SCH (08:46)
[2021-08-09] MEDS: FUROSEMIDE 40MG TABLET PO SCH ×2 (08:46→21:49)
[2021-08-09] MEDS: HYDRALAZINE HCL 100MG TABLET PO SCH ×2 (08:47→21:50)
[2021-08-09] MEDS: METOPROLOL TARTRATE 50MG TABLET PO SCH ×2 (08:48→21:49)
[2021-08-09] MEDS: PANTOPRAZOLE SODIUM 40 MG/VIAL IV SCH (08:53)
[2021-08-09] MEDS: PREDNISONE 20MG TABLET PO SCH (08:54)
[2021-08-09] MEDS: THIAMINE HCL 100MG TABLET PO SCH (09:05)
[2021-08-09] MEDS: AMLODIPINE 10MG TABLET PO SCH (09:06)
[2021-08-09] MEDS: GUAIFENESIN 600MG ER TABLET PO SCH ×2 (09:07→21:00)
[2021-08-09 09:44] LABS: BG BASE EXCESS 1.3 mmol/L (-2.0-2.0); BG CARBOXYHEMOGLOBIN 0.3 % (0.5-1.5); BG DEOXYHEMOGLOBIN 3.8 % (0.0-5.0); BG FRACTION INSPIRED OXYGEN 100; BG HCO3 ACT 25.9 mmol/L (22.0-26.0); BG METHEMOGLOBIN 0.3 % (0.0-1.5); BG OXYGEN SATURATION 96.2 % (92.0-98.5); BG OXYHEMOGLOBIN 95.6 % (94.0-97.0); BG PCO2 41.1 mmHg (35.0-45.0); BG PH 7.418 (7.350-7.450); BG PO2 83.4 mmHg (75.0-100.0); BG SAMPLE SITE RIGHT RADIAL; BG TOTAL HEMOGLOBIN 9.2 g/dL (12.0-18.0); BG VENT MODE MASK - NRB
[2021-08-09] MEDS: INSULIN GLARGINE UD 100 UNITS/ML SYR SUBCUT SCH ×2 (10:35→21:53)
[2021-08-09 12:30] LABS: BG BASE EXCESS 2.6 mmol/L (-2.0-2.0); BG CARBOXYHEMOGLOBIN 0.4 % (0.5-1.5); BG DEOXYHEMOGLOBIN 7.1 % (0.0-5.0); BG FRACTION INSPIRED OXYGEN 40; BG HCO3 ACT 27.3 mmol/L (22.0-26.0); BG METHEMOGLOBIN 0.3 % (0.0-1.5); BG OXYGEN SATURATION 92.8 % (92.0-98.5); BG OXYHEMOGLOBIN 92.2 % (94.0-97.0); BG PCO2 42.2 mmHg (35.0-45.0); BG PH 7.428 (7.350-7.450); BG PO2 66.3 mmHg (75.0-100.0); BG SAMPLE SITE LEFT BRACHIAL; BG TOTAL HEMOGLOBIN 9.8 g/dL (12.0-18.0); BG VENT MODE NASAL CANNULA
[2021-08-09] MEDS: METHYLPREDNISOLONE SOD SUCC 40 MG/ML VIAL IV SCH ×2 (15:07→21:49)
[2021-08-09 19:16] LABS: PLATELET ESTIMATE NORMAL
[2021-08-10] VITALS (12 sets, daily range): BP systolic 94–146; BP diastolic 59–90
[2021-08-10] MEDS: METOCLOPRAMIDE HCL 10MG/2ML VIAL IV SCH ×5 (00:55→23:52)
[2021-08-10] MEDS: INSULIN LISPRO 100 UNITS/ML SUBCUT SCH ×5 (00:55→23:52)
[2021-08-10] MEDS: IPRATROPIUM/ALBUTEROL 0.5-3(2.5)MG/3ML NEB HHN SCH ×6 (00:56→21:03)
[2021-08-10] MEDS: CEFEPIME 1,000 MG in DEXTROSE 5% WATER 50 ML IV SCH ×3 (02:55→18:18)
[2021-08-10] MEDS: METHYLPREDNISOLONE SOD SUCC 40 MG/ML VIAL IV SCH ×3 (05:50→21:46)
[2021-08-10] MEDS: BLOOD SUGAR DIAGNOSTIC STRIP TEST SCH ×5 (05:51→23:40)
[2021-08-10 06:26] LABS: HEMATOCRIT. 29.7 % (42.0-52.0); HEMOGLOBIN. 9.9 g/dL (14.0-18.0); MEAN CORPUSCULAR HEMOGLOBIN 28.4 pg (28.0-32.0); MEAN CORPUSCULAR VOLUME 85.3 fL (80.0-94.0); MEAN PLATELET VOLUME 10.2 fl (7.4-10.4); PLATELET 189 x1000/uL (130-400); RED BLOOD CELL COUNT 3.48 mill/uL (4.7-6.1); RED CELL DISTRIBUTION WIDTH 17.9 % (11.6-14.6)
[2021-08-10 06:59] LABS: PHOSPHORUS 3.6 mg/dL (2.5-4.9)
[2021-08-10] MEDS: DOCUSATE SODIUM SUGAR FREE 100MG/10ML UDC NG SCH (08:50)
[2021-08-10] MEDS: HYDRALAZINE HCL 100MG TABLET PO SCH ×2 (09:04→20:20)
[2021-08-10] MEDS: PANTOPRAZOLE SODIUM 40 MG/VIAL IV SCH (09:04)
[2021-08-10] MEDS: FOLIC ACID 1MG TABLET PO SCH (09:04)
[2021-08-10] MEDS: AMLODIPINE 10MG TABLET PO SCH (09:05)
[2021-08-10] MEDS: MAGNESIUM OXIDE 400MG TABLET PO SCH ×2 (09:05→20:19)
[2021-08-10] MEDS: THIAMINE HCL 100MG TABLET PO SCH (09:05)
[2021-08-10] MEDS: METOPROLOL TARTRATE 50MG TABLET PO SCH ×2 (09:05→20:20)
[2021-08-10] MEDS: FUROSEMIDE 40MG TABLET PO SCH ×2 (09:06→20:19)
[2021-08-10] MEDS: ENOXAPARIN 30MG/0.3ML SYR SUBCUT SCH ×2 (09:06→20:20)
[2021-08-10] MEDS: GUAIFENESIN 600MG ER TABLET PO SCH ×2 (09:13→20:32)
[2021-08-10] MEDS ORDERED: BARIUM SULFATE 176 GM SUSP.RECON ONE (09:24)
[2021-08-10] MEDS ORDERED: MAGNESIUM 2 G PREMIX 50 ML IV NR (10:30)
[2021-08-10] MEDS: INSULIN GLARGINE UD 100 UNITS/ML SYR SUBCUT SCH (11:06)
[2021-08-10 12:16] LABS: PLATELET ESTIMATE NORMAL
[2021-08-10] MEDS ORDERED: INSULIN GLARGINE UD 100 UNITS/ML SYR SUBCUT SCH (22:00)
[2021-08-11] VITALS (12 sets, daily range): BP systolic 92–123; BP diastolic 54–99
[2021-08-11] MEDS: IPRATROPIUM/ALBUTEROL 0.5-3(2.5)MG/3ML NEB HHN SCH ×6 (01:15→20:23)
[2021-08-11] MEDS: CEFEPIME 1,000 MG in DEXTROSE 5% WATER 50 ML IV SCH ×3 (03:01→18:34)
[2021-08-11 05:11] LABS: BASOPHILS % 0.6 % (0.0-2.0); EOSINOPHILS % 0.1 % (0.0-5.0); HEMATOCRIT. 28.1 % (42.0-52.0); HEMOGLOBIN. 9.5 g/dL (14.0-18.0); LYMPHOCYTES % 7.8 % (20.0-50.0); MEAN CORPUSCULAR HEMOGLOBIN 28.5 pg (28.0-32.0); MEAN CORPUSCULAR VOLUME 84.4 fL (80.0-94.0); MEAN PLATELET VOLUME 9.8 fl (7.4-10.4); MONOCYTES % 3.7 % (2.0-8.0); NEUTROPHILS % 87.8 % (40.0-76.0); PLATELET 236 x1000/uL (130-400); RED BLOOD CELL COUNT 3.33 mill/uL (4.7-6.1); RED CELL DISTRIBUTION WIDTH 17.8 % (11.6-14.6)
[2021-08-11 05:23] LABS: PHOSPHORUS 2.7 mg/dL (2.5-4.9)
[2021-08-11] MEDS: BLOOD SUGAR DIAGNOSTIC STRIP TEST SCH ×3 (05:32→18:31)
[2021-08-11] MEDS: METOCLOPRAMIDE HCL 10MG/2ML VIAL IV SCH ×3 (05:33→18:30)
[2021-08-11] MEDS: METHYLPREDNISOLONE SOD SUCC 40 MG/ML VIAL IV SCH ×3 (05:33→22:08)
[2021-08-11] MEDS: INSULIN LISPRO 100 UNITS/ML SUBCUT SCH ×3 (05:35→18:31)
[2021-08-11] MEDS: GUAIFENESIN 600MG ER TABLET PO SCH ×2 (09:39→22:07)
[2021-08-11] MEDS: PANTOPRAZOLE SODIUM 40 MG/VIAL IV SCH (09:39)
[2021-08-11] MEDS: THIAMINE HCL 100MG TABLET PO SCH (09:40)
[2021-08-11] MEDS: HYDRALAZINE HCL 100MG TABLET PO SCH ×2 (09:40→22:08)
[2021-08-11] MEDS: MAGNESIUM OXIDE 400MG TABLET PO SCH ×2 (09:40→22:07)
[2021-08-11] MEDS: METOPROLOL TARTRATE 50MG TABLET PO SCH ×2 (09:40→22:08)
[2021-08-11] MEDS: DOCUSATE SODIUM SUGAR FREE 100MG/10ML UDC NG SCH (09:40)
[2021-08-11] MEDS: FOLIC ACID 1MG TABLET PO SCH (09:41)
[2021-08-11] MEDS: ENOXAPARIN 30MG/0.3ML SYR SUBCUT SCH ×2 (09:43→22:07)
[2021-08-11] MEDS: AMLODIPINE 10MG TABLET PO SCH (09:43)
[2021-08-11] MEDS: INSULIN GLARGINE UD 100 UNITS/ML SYR SUBCUT SCH ×2 (12:47→22:56)
[2021-08-12] VITALS (11 sets, daily range): BP systolic 99–132; BP diastolic 48–85
[2021-08-12] MEDS: IPRATROPIUM/ALBUTEROL 0.5-3(2.5)MG/3ML NEB HHN SCH ×4 (00:11→12:17)
[2021-08-12] MEDS: CEFEPIME 1,000 MG in DEXTROSE 5% WATER 50 ML IV SCH ×2 (01:38→09:40)
[2021-08-12] MEDS: METOCLOPRAMIDE HCL 10MG/2ML VIAL IV SCH ×3 (01:38→12:28)
[2021-08-12] MEDS: INSULIN LISPRO 100 UNITS/ML SUBCUT SCH ×3 (01:38→12:29)
[2021-08-12] MEDS: BLOOD SUGAR DIAGNOSTIC STRIP TEST SCH ×3 (06:22→11:47)
[2021-08-12 06:35] LABS: HEMATOCRIT. 29.3 % (42.0-52.0); HEMOGLOBIN. 10.1 g/dL (14.0-18.0); MEAN CORPUSCULAR HEMOGLOBIN 28.9 pg (28.0-32.0); MEAN CORPUSCULAR VOLUME 83.6 fL (80.0-94.0); MEAN PLATELET VOLUME 10.1 fl (7.4-10.4); PLATELET 259 x1000/uL (130-400); RED BLOOD CELL COUNT 3.51 mill/uL (4.7-6.1); RED CELL DISTRIBUTION WIDTH 17.7 % (11.6-14.6)
[2021-08-12 06:55] LABS: PHOSPHORUS 3.8 mg/dL (2.5-4.9)
[2021-08-12] MEDS: METHYLPREDNISOLONE SOD SUCC 40 MG/ML VIAL IV SCH (06:56)
[2021-08-12] MEDS: AMLODIPINE 10MG TABLET PO SCH (09:17)
[2021-08-12] MEDS: THIAMINE HCL 100MG TABLET PO SCH (09:17)
[2021-08-12] MEDS: GUAIFENESIN 600MG ER TABLET PO SCH (09:17)
[2021-08-12] MEDS: METOPROLOL TARTRATE 50MG TABLET PO SCH (09:17)
[2021-08-12] MEDS: ENOXAPARIN 30MG/0.3ML SYR SUBCUT SCH (09:18)
[2021-08-12] MEDS: HYDRALAZINE HCL 100MG TABLET PO SCH (09:18)
[2021-08-12] MEDS: PANTOPRAZOLE SODIUM 40 MG/VIAL IV SCH (09:19)
[2021-08-12] MEDS: FOLIC ACID 1MG TABLET PO SCH (09:40)
[2021-08-12] MEDS: DOCUSATE SODIUM SUGAR FREE 100MG/10ML UDC NG SCH (09:51)
[2021-08-12] MEDS ORDERED: INSULIN GLARGINE UD 100 UNITS/ML SYR SUBCUT SCH (11:00)
[2021-08-12] MEDS ORDERED: HYDR100T26 MT (11:57)
[2021-08-12] MEDS ORDERED: AMLO10TA80 PO (11:57)
[2021-08-12 15:23] LABS: PLATELET ESTIMATE NORMAL
[2021-08-12] MEDS ORDERED: METHYLPREDNISOLONE SOD SUCC 40 MG/ML VIAL IV SCH (17:00)
== END 2021-08-12 16:05 | disposition home health service (06) | DRG 720 ==
LOC: ER 06:10 → MICUNO 08:54 → ENRESERV 10:01 → MICUSO 20:00 → 5EST 08-05 04:58
PROVIDERS: ADMIT Internal Medicine; ATTEND Internal Medicine
PROC: 5A1955Z Respiratory Ventilation, Greater than 96 Consecutive Hours (ICD-10-PCS; principal; 2021-07-29)
PROC: 05H533Z Insertion of Infusion Device into Right Subclavian Vein, Percutaneous Approach (ICD-10-PCS; 2021-07-29)
PROC: B546ZZA Ultrasonography of Right Subclavian Vein, Guidance (ICD-10-PCS; 2021-07-29)
PROC: 0BH17EZ Insertion of Endotracheal Airway into Trachea, Via Natural or Artificial Opening (ICD-10-PCS; 2021-07-29)
PROC: 5A09357 Assistance with Respiratory Ventilation, Less than 24 Consecutive Hours, Continuous Positive Airway Pressure (ICD-10-PCS; 2021-08-03)
PROC: 0JBR0ZZ Excision of Left Foot Subcutaneous Tissue and Fascia, Open Approach (ICD-10-PCS; 2021-08-05)
PROC: 0JBR0ZZ Excision of Left Foot Subcutaneous Tissue and Fascia, Open Approach (ICD-10-PCS; 2021-08-10)
DX: A41.9 Sepsis, unspecified organism (principal); N17.0 Acute kidney failure with tubular necrosis; J96.02 Acute respiratory failure with hypercapnia; R65.21 Severe sepsis with septic shock; E44.0 Moderate protein-calorie malnutrition; D69.6 Thrombocytopenia, unspecified; J18.9 Pneumonia, unspecified organism; E87.1 Hypo-osmolality and hyponatremia; E87.2 Acidosis; E87.8 Other disorders of electrolyte and fluid balance, not elsewhere classified; E87.5 Hyperkalemia; D64.9 Anemia, unspecified; R13.10 Dysphagia, unspecified; T78.3XXA Angioneurotic edema, initial encounter; E78.5 Hyperlipidemia, unspecified; E11.51 Type 2 diabetes mellitus with diabetic peripheral angiopathy without gangrene; E83.42 Hypomagnesemia; I12.9 Hypertensive chronic kidney disease with stage 1 through stage 4 chronic kidney disease, or unspecified chronic kidney disease; Z20.822 Contact with and (suspected) exposure to COVID-19; E11.22 Type 2 diabetes mellitus with diabetic chronic kidney disease; N18.4 Chronic kidney disease, stage 4 (severe); Z89.432 Acquired absence of left foot; Z68.33 Body mass index [BMI] 33.0-33.9, adult; Z83.3 Family history of diabetes mellitus; Z89.421 Acquired absence of other right toe(s); J05.10 Acute epiglottitis without obstruction
CPT/HCPCS: 31500; 36415; 36600; 70490; 71045; 74018; 74230; 76770; 76937; 80048; 80053; 81003; 82140; 82375; 82550; 82805; 82962; 83036; 83605; 83735; 83880; 84100; 84145; 84443; 84478; 84484; 85025; 87070; 87426; 92610; 92611; 93005; 93970; 94002; 94003; 94640; 94660; 97116; 97162; 97530; 99291; A6261; C1725; C9113; J0360; J0692; J1200; J1630; J1650; J1815; J2060; J2250; J2370; J2405; J2543; J2704; J2765; J2920; J2930; J3010; J3370; J3475; J3490; J7030; J7050; J7060; J7070; J7512; J7608; U0003; U0005

== ENCOUNTER 2023-09-11 22:27 | Emergency (ER) | payer MEDICAID ==
[~2023-09-11] VITALS: Ht 172.7 cm; Wt 73.0 kg
[~2023-09-11 22:27] MED LIST: AMLO10TA80 PO; HYDR100T26 MT
[2023-09-11 22:48] VITALS: BP 159/98; O2SAT 99
[2023-09-12] MEDS ORDERED: TOPUD MT (01:57)
[2023-09-12 02:32] VITALS: PULSE 95; RESP 18; TEMP 98.8
== END 2023-09-12 02:34 | disposition home or self-care (01) ==
LOC: ER 23:19
DX: S62.602A Fracture of unspecified phalanx of right middle finger, initial encounter for closed fracture (principal); E11.9 Type 2 diabetes mellitus without complications; X58.XXXA Exposure to other specified factors, initial encounter; Y93.89 Activity, other specified; Y92.89 Other specified places as the place of occurrence of the external cause; Y99.8 Other external cause status
CPT/HCPCS: 73140; 99283